=== PATIENT | male | born 1990 ===

== ENCOUNTER 2025-07-20 14:27 | Outpatient (REF) | payer BC, SELFPAY ==
[2025-07-20 16:14] LABS: HCT 38.7 % (40.0-50.0); HGB 13.1 g/dL (13.5-17.5); MCH 28.7 pg (27.0-33.0); MCHC 33.9 % (32.0-36.0); MCV 85 fL (80-95); MPV 10.1 fL (8.0-11.0); Platelet Count 380 10^3/uL (130-400); RBC 4.57 10^6/uL (4.36-5.78); RDW 11.6 % (11.8-14.1); RDW-SD 35.3 fL; WBC 3.29 10^3/uL (4.4-10.8)
[2025-07-20 16:38] LABS: ALT 16 U/L (10-49); AST 23 U/L (<34); Albumin 4.6 g/dL (3.2-5.0); Alkaline Phosphatase 60 U/L (46-116); Anion Gap 6.2 mmol/L (3-11); BUN 18 mg/dL (9-23); Bilirubin, Total 0.50 mg/dL (0.2-1.2); CO2 27.8 mmol/L (20.0-31.0); Calcium 9.7 mg/dL (8.3-10.6); Chloride 106 mmol/L (98-107); Cholesterol 176 mg/dL (<200); Glucose 91 mg/dL (74-106); HDL Cholesterol 54 mg/dL (>40); Potassium 4.2 mmol/L (3.5-5.1); Sodium 140 mmol/L (136-145); Total Protein 6.9 g/dL (5.7-8.2)
== END 2025-07-20 14:28 | disposition home or self-care (01) ==
LOC: NCHCN 14:27
PROVIDERS: Visit Provider Physician Assistant
DX: Z13.6 Encounter for screening for cardiovascular disorders (principal); Z13.220 Encounter for screening for lipoid disorders
CPT/HCPCS: 80053; 80061; 85027